=== PATIENT | female | born 2000 | race Caucasian/White ===

== ENCOUNTER 2022-01-03 16:54 | Emergency (ER) | payer OTHER, BC, SELFPAY ==
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
[2022-01-03 16:54] VITALS: BP 136/93; PULSE 95; RESP 18; TEMP 36.8; O2SAT 99; BMI 27.0
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
[2022-01-03 17:00] VITALS: BP 131/85; PULSE 96; O2SAT 99
[2022-01-03 17:30] VITALS: BP 122/85; PULSE 98; O2SAT 96
[2022-01-03 18:00] VITALS: BP 130/92; PULSE 102; O2SAT 97
--- NOTE | 2022-01-03 18:24 | PC.NURSE ---
pt ambulated to the bathroom without any assistance and tolerated well.
[2022-01-03 19:07] VITALS: BP 130/92; PULSE 102; RESP 18; TEMP 36.8; O2SAT 97
== END 2022-01-03 19:10 | disposition home or self-care (01) ==
PROVIDERS: Emergency Provider Student in an Organized Health Care Education/Training Program
DX: M54.6 Pain in thoracic spine (principal); M62.838 Other muscle spasm; Z88.0 Allergy status to penicillin; V49.40XA Driver injured in collision with unspecified motor vehicles in traffic accident, initial encounter; Y92.410 Unspecified street and highway as the place of occurrence of the external cause
CPT/HCPCS: 71045; 72070; 72170; 96372; 99284